=== PATIENT | male | born 1950 | race African-American/Black ===

== ENCOUNTER 2021-10-04 17:20 | Emergency (ER) | payer BC, MEDICAID ==
[~2021-10-04] VITALS: Ht 182.9 cm; Wt 94.0 kg
[~2021-10-04 17:20] MED LIST: ASPI-1406 PO; LIP40 PO
[2021-10-04 17:30] VITALS: BP 120/72
[2021-10-04 18:43] LABS: BASOPHILS % 1.1 % (0.0-2.0); EOSINOPHILS % 2.3 % (0.0-5.0); HEMATOCRIT. 43.1 % (42.0-52.0); HEMOGLOBIN. 14.3 g/dL (14.0-18.0); LYMPHOCYTES % 46.6 % (20.0-50.0); MEAN CORPUSCULAR HEMOGLOBIN 29.2 pg (28.0-32.0); MEAN PLATELET VOLUME 8.3 fl (7.4-10.4); MONOCYTES % 11.7 % (2.0-8.0); NEUTROPHILS % 38.3 % (40.0-76.0); PLATELET 177 x1000/uL (130-400); RED CELL DISTRIBUTION WIDTH 14.3 % (11.6-14.6)
[2021-10-04 19:05] LABS: CHLORIDE 106 mEq/L (98-107)
[2021-10-04 21:54] LABS: CLARITY URINE CLEAR (CLEAR); COLOR URINE YELLOW (YELLOW); KETONES URINE TRACE (NEGATIVE); LEUKOCYTE ESTERASE URINE NEGATIVE (NEGATIVE); NITRITE URINE NEGATIVE (NEGATIVE); OCCULT BLOOD URINE NEGATIVE (NEGATIVE); PROTEIN URINE NEGATIVE (NEGATIVE); SPECIFIC GRAVITY URINE 1.022 (1.005-1.030)
== END 2021-10-04 21:03 | disposition home or self-care (01) ==
LOC: ER 17:20
DX: R42 Dizziness and giddiness (principal); I50.9 Heart failure, unspecified; I25.10 Atherosclerotic heart disease of native coronary artery without angina pectoris; Z98.61 Coronary angioplasty status; Z79.82 Long term (current) use of aspirin
CPT/HCPCS: 36415; 71045; 80053; 81003; 84484; 85025; 93005; 99285

== ENCOUNTER 2021-12-25 16:58 | Emergency (ER) | payer BC, OTHER ==
[~2021-12-25] VITALS: Ht 180.3 cm; Wt 120.0 kg
[2021-12-25 17:10] VITALS: BP 110/71
== END 2021-12-26 00:10 | disposition left against medical advice (07) ==
LOC: ER 16:58
DX: Z53.21 Procedure and treatment not carried out due to patient leaving prior to being seen by health care provider (principal)